=== PATIENT | male | born 1960 | race Caucasian/White ===

== ENCOUNTER 2018-05-20 21:53 | Inpatient (IN) | payer SELFPAY ==
[2018-05-20] MEDS ORDERED: Aspirin 81 mg CHEW TAB* 81 MG TAB.CHEW PO ONE (22:25)
[2018-05-20] MEDS ORDERED: Albuterol/Ipratropium NEB.SOL* Albuterol 2.5 MG/Ipratropium 0.5 MG 3 ML INH ONE (22:25)
--- NOTE | 2018-05-20 22:35 | ED ---
Shortness of Breath - HPI Summary HPI Summary: A 58 y/o male transferred from [place] presents to the ED c/o SOB. He woke up today, 05/20/2018 having difficulty breathing and went to work. He also c/o heart burn, nausea and states that he has vomited 10 times today. He denies any CP, diarrhea, swelling or abd pain. He is a smoker but denies any drug or alcohol use. Pt has a Hx of 2 MIs but denies COPD or emphysema. - History of Current Complaint Chief Complaint: EDShortnessOfBreath Time Seen by Provider: 05/20/18 22:07 Hx Obtained From: Patient Onset/Duration: Sudden Onset, Lasting Hours Current Severity: Moderate - Allergy/Home Medications Allergies/Adverse Reactions: Allergies Allergy/AdvReac Type Severity Reaction Status Date / Time bee venom protein (honey bee) Allergy Unknown Verified 05/20/18 22:11 Reaction Details peach Allergy Unknown Verified 05/20/18 22:11 Reaction Details Home Medications: Home Medications Furosemide TAB* [Lasix TAB*] 20 mg PO DAILY 05/20/18 [History Confirmed 05/20/18 ] amLODIPine TAB* [Norvasc 5 mg TAB*] 10 mg PO DAILY 05/20/18 [History Confirmed 05/20/18] metFORMIN* [Glucophage 500 MG TAB *] 500 mg PO BID 05/20/18 [History Confirmed 05/20/18] PMH/Surg Hx/FS Hx/Imm Hx Cardiovascular History: Reports: Hx Cardiac Arrest Respiratory History: Denies: Hx Chronic Obstructive Pulmonary Disease (COPD) Infectious Disease History: No Infectious Disease History: Denies: Traveled Outside the [place] in Last 30 Days - Family History Known Family History: Negative: Blood Disorder - Social History Alcohol Use: None Substance Use Type: Reports: None Smoking Status (MU): Heavy Every Day Tobacco Smoker Review of Systems Negative: Fever Negative: Chest Pain Positive: Shortness Of Breath Positive: Vomiting, Nausea. Negative: Abdominal Pain, Diarrhea All Other Systems Reviewed And Are Negative: Yes Physical Exam - Summary Physical Exam Summary: Appearance: Well appearing, no pain distress Skin: warm, dry, reflects adequate perfusion Head/face: normal Eyes: EOMI, SHAHEED ENT: normal Neck: supple, non-tender Respiratory: rales b/l Cardiovascular: Tachycardic, regular rhythm, pulses symmetrical Abdomen: non-tender, soft Bowel: present Musculoskeletal: normal, strength/ROM intact Neuro: normal, sensory motor intact, A&Ox3 Triage Information Reviewed: Yes Vital Signs On Initial Exam: Initial Vitals Temp Pulse Resp BP Pulse Ox 98.6 F 110 22 173/117 95 05/20/18 21:58 05/20/18 21:58 05/20/18 21:58 05/20/18 21:58 05/20/18 21:58 Vital Signs Reviewed: Yes Diagnostics - Vital Signs Vital Signs Temp Pulse Resp BP Pulse Ox 05/20/18 21:58 98.6 F 110 22 173/117 95 - Laboratory Lab Statement: Any lab studies that have been ordered have been reviewed, and results considered in the medical decision making process. - CT Chest/Thorax CTA CT Interpretation Completed By: Radiologist - 1. No pulmonary emboli. 2.findings of bronchitis with bibasilar atelectasis and small pleural effusions. This report has been reviewed by the ED physician. - EKG 00:29 Cardiac Rate: NL - 118 bpm EKG Rhythm: Atrial Fibrillation Summary of EKG Findings: rvr Course/Dx - Course Course Of Treatment: A 58 y/o male transferred from [place] presents to the ED c/o SOB. He woke up today, 05/20/2018 having difficulty breathing and went to work. His PE revealed that he was tachycardic. The CTA chest/thorax revealed: 1. No pulmonary emboli. 2. Findings of bronchitis with bibasilar atelectasis and small pleural effusions. Dx: CHF, PNA, hypoxia. The patient will be admitted to Dr. Zhang. The pt is agreeable to this plan. - Diagnoses Differential Diagnosis/HQI/PQRI: Positive: Bronchitis, CHF, COPD Exacerbation, Pneumonia, Pulmonary Embolism Provider Diagnoses: CHF (congestive heart failure), PNA (pneumonia), Hypoxia, COPD exacerbation - Physician Notifications Discussed Care of Patient With: Vy Zhang Time Discussed With Above Provider: 23:40 Instructed by Provider To: Admit As Inpatient - Critical Care Time Critical Care Time: 30-74 min Discharge - Sign-Out/Discharge Documenting (check all that apply): Patient Departure - Admit - Discharge Plan Condition: Fair Disposition: ADMITTED TO [facility] - Billing Disposition and Condition Condition: FAIR Disposition: Admitted to [facility] - Attestation Statements Document Initiated by Scribe: Yes Documenting Scribe: Red Wynne Provider For Whom Scribe is Documenting (Include Credential): Tyler Ray Scribe Attestation: I, Red Wynne, scribed for Tyler Sherwoodjanine on 05/21/18 at 0141. Scribe Documentation Reviewed: Yes Provider Attestation: The documentation as recorded by the travonibeRed accurately reflects the service I personally performed and the decisions made by me, Tyler Ray
[2018-05-20] MEDS ORDERED: Iodixanol* (CONTRAST) 320 MG/ML 100 ML SDV IV ONE (22:54)
[2018-05-20] MEDS ORDERED: Furosemide IV* 10 MG/ML VIAL (40 MG) IV ONE (23:23)
[2018-05-20] MEDS ORDERED: cefTRIAXone(*) 1 GM in NS 0.9% 50 ML* 50 ML IVPB ONE (23:24)
[2018-05-20] MEDS ORDERED: Azithromycin IV(*) 500 MG in NS 0.9% 250 ML* 250 ML IVPB ONE (23:24)
--- NOTE | 2018-05-21 00:25 | RAD ---
EXAM: CT Angiography Chest With Intravenous Contrast EXAM DATE/TIME: 05/20/2018 11:02 PM CLINICAL HISTORY: 58 years old, male; Pain and signs and symptoms; Shortness of breath; Chest pain; Additional info: Sob/hypoxia/pe TECHNIQUE: Axial computed tomographic angiography images of the chest with intravenous contrast using CT angiography protocol. All CT scans at this facility use at least one of these dose optimization techniques: automated exposure control; mA and/or kV adjustment per patient size (includes targeted exams where dose is matched to clinical indication); or iterative reconstruction. Coronal and sagittal reformatted images were created and reviewed. MIP reconstructed images were created and reviewed. CONTRAST: 82 ml of visi administered intravenously. COMPARISON: No relevant prior studies available. FINDINGS: Pulmonary arteries: Pulmonary arteries are well opacified to the subsegmental branches. Normal caliber main pulmonary artery. No filling defects throughout the pulmonary artery tree. Aorta: The aorta demonstrates mild atherosclerotic calcification. Lungs: Patchy subsegmental atelectasis basilar segments bilateral lower lobes. Ground glass pulmonary nodules anterior segment right upper lobe measuring 0.4 and 0.6 cm and upper lingula measuring 0.3 cm (series 3, image 26). Mild diffuse peribronchial thickening. No bronchiectasis. Pleural space: Small pleural effusions. No pneumothorax. Heart: There is mild atherosclerotic calcification of the coronary arteries. Thyroid: No thyroid nodules. Bones/joints: The thoracic spine demonstrates mild degenerative changes at multiple levels. No fractures. No suspicious bone lesions. Soft tissues: Normal. Lymph nodes: Normal. No enlarged lymph nodes. IMPRESSION: 1. No pulmonary emboli. 2. Findings of bronchitis with bibasilar atelectasis and small pleural effusions. To contact [facility] with a general question: [facility] - [phone] For direct physician to physician contact: Physician Hotline - [phone] [facility] ([facility] Facility ID #[id number])
[2018-05-21] MEDS ORDERED: Albuterol 2.5 MG/3 ML NEB.SOL* (0.083%) INH PRN (00:35)
[2018-05-21] MEDS ORDERED: hydrALAZINE IV* 20 MG/ML VIAL IV SLOW PU PRN (00:38)
[2018-05-21] MEDS ORDERED: Metoprolol Tartrate TAB* 25 MG PO ONE (00:43)
[2018-05-21] MEDS ORDERED: Enoxaparin(*) 100 MG/ML SYR SUBCUT SCH (01:00)
[2018-05-21] MEDS ORDERED: Dextrose 50% Syringe 50 ML* 25 GM/50 ML SYRINGE IV PUSH PRN ×3 (01:03→12:18)
--- NOTE | 2018-05-21 03:36 | HP ---
HISTORY AND PHYSICAL: DATE OF ADMISSION: 05/21/18 PRIMARY CARE PROVIDER: None. 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 CHIEF COMPLAINT: Shortness of breath. HISTORY OF PRESENT ILLNESS: Mr. Jacobson is a 58-year-old male who approximately 12 days ago was seen at [facility] where he reportedly, per his family, was diagnosed with CHF. He was discharged from [facility] with 4 prescriptions including Tessalon Perles, amlodipine, Lasix, and metformin for a diagnosis of diabetes. The patient states he has been taking the medications since his evaluation at [facility]. In general, he had been feeling better in terms of his breathing until the evening of 05/19/18. The patient states that he had dinner like normal and was generally feeling in his usual state of health. He went to bed and in bed, he noted that he had to lie with his head raised, at least 30 degrees, to help his breathing. He states generally he slept very poorly due to shortness of breath and having to get up several times in the middle of the night to urinate, which is a common occurrence for him. The patient went to work on 05/20/18 and later went home for lunch. After lunch, he then went to visit his son. When he got home from visiting his son, he vomited. He laid on the couch for about 20 minutes and then told his girlfriend that he needed to go to the emergency room as he was severely short of breath. The patient's girlfriend had to tack puller twice on the way to the emergency room so he could vomit. Since arriving to the emergency room at [facility], the patient noted he has had improvement in terms of his respiratory status. He still, however, feels quite short of breath. He does complain of cough, which is relatively new and thick sputum production. He states that his sputum production is unchanged from his baseline; however, according to the note from [facility], he stated that it was more than normal. He denies any recent long distance travel and he denies any recent sick contacts. He states he has had no fevers, but he states that he had chills a couple of nights ago. PAST MEDICAL HISTORY: 1. Type 2 diabetes. 2. Hypertension. 3. CVA in December 2017. 4. CAD, status post stenting. 5. Hyperlipidemia. PAST SURGICAL HISTORY: Left arm surgery related to a fracture. MEDICATIONS: 1. Amlodipine 10 mg p.o. daily. 2. Metformin 500 mg p.o. b.i.d. 3. Lasix 20 mg p.o. daily. ALLERGIES: No known drug allergies, but he is allergic to BEE VENOM and PEACH. FAMILY HISTORY: Mom of lung cancer. Dad at the age of 57 of [place]. SOCIAL HISTORY: The patient smokes 1 pack per day and has been doing so since the age of 11. He does not drink alcohol. 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 He has a girlfriend. He has 3 children. He indicates that his girlfriend and his [id number] would be his healthcare proxies. REVIEW OF SYSTEMS: A complete 11-system review of systems is obtained. Pertinent positives and negatives are as per HPI and in addition, the patient does admit to nocturia getting up 4 to 5 times per night and chronic right- sided weakness that has been since a stroke in December. PHYSICAL EXAMINATION GENERAL: The patient is a well-developed, middle-aged male seen lying in the stretcher, in no acute distress. VITAL SIGNS: Blood pressure 151/84, pulse 127, respirations 22, temp 98.6, O2 sat 93% on 4 L. HEENT: Pupils are equal and round. Extraocular muscles are intact. Oropharynx is clear. Oral mucosa is moist. Thyroid is not enlarged. No thyroid nodules are noted. NECK: There is submandibular, cervical, or supraclavicular adenopathy. PULMONARY: Breath sounds are markedly decreased at the bases, but are decreased throughout all lung keyes. Breath sounds are somewhat coarse. CARDIAC: Heart rate sounds to be irregular on exam and is tachycardic on EKG. The patient is irregularly irregular. There is 1 to 2+ bilateral lower extremity pitting edema. ABDOMEN: Bowel sounds are present. Abdomen is soft, nontender, nondistended. MUSCULOSKELETAL: There is no cyanosis or clubbing of the digits. There is full active range of motion of all 4 extremities. NEUROLOGIC: Cranial nerves II through XII are grossly intact. Sensation appears to be intact. Strength is generally symmetric and normal. PSYCH: The patient is alert. He is oriented x3. He provides poor eye contact and speaks softly, but denies depression. SKIN: Warm and dry. There are no rashes. The patient does have a very large tattoo on his back. DIAGNOSTIC STUDIES/LAB DATA: WBC 16.6, hemoglobin 14.2, hematocrit 42.4, platelets 415. Sodium 140, potassium 3.3, chloride 99, CO2 of 29, BUN 21, creatinine 1.2, glucose 275, calcium 8.8. Magnesium 2.2. Albumin 3.5, AST 18, ALT 42, bilirubin 0.6, alk phos 187. INR 0.95. Lactic acid 2.5. BNP 81. D- dimer 1380. Troponin 0.029. EKG initially concerned for atrial fibrillation; however, the patient appears to have irregularly irregular rate on EKG, question sinus versus ectopic atrial tachycardia. There are no acute ST-T wave abnormalities. CTA chest reveals no pulmonary emboli. Findings consistent with bronchitis with bibasilar atelectasis and small pleural effusion. ASSESSMENT AND PLAN: Mr. Jacobson is a 58-year-old male who has a longstanding ongoing history of tobacco abuse, type 2 diabetes, hypertension, coronary artery disease, and past CVA, who presented initially to [facility] with complaints of shortness of breath and subsequently transferred [place] [facility] due to an elevated troponin. 1. Dyspnea. The differential in the patient's dyspnea is quite broad. He has essentially been ruled out for pulmonary embolism at this point. He may have bronchitis versus pneumonia. The patient at times alludes to the fact that perhaps the cough and sputum is a relatively new issue for him. The patient has an elevated white blood cell count of 16,600. He stated that he had chills and with the abnormal CTA lung parenchyma findings, I will go ahead and start Levaquin daily starting tomorrow. The patient did receive ceftriaxone and azithromycin in the emergency room at [facility]. Also on the differential would be congestive heart failure; however, the patient's BNP is normal at 81. He does have bilateral lower extremity pitting edema. He has not had an echo in several months and not in our system. The patient will undergo a transthoracic echocardiogram to evaluate his ejection fraction. Also on the differential is chronic obstructive pulmonary disease exacerbation. The patient has an extensive smoking history. We will treat him with nebulizers, Solu-Medrol, and antibiotics. The patient was noted to be hypoxic in the emergency room at [facility]. The patient had relatively coarse breath sounds but mostly clear and diminished. I suspect his hypoxia may have been related to his probable chronic obstructive pulmonary disease. The patient did temporarily take off the oxygen and had a saturation of 91% on room air. This will need to be monitored closely. 2. Elevated troponin. The patient's troponin at [facility] was slightly elevated at 0.029 with a normal cut off being 0.02. The patient denies any chest pain. His EKG does not have any concerning ST-T wave abnormalities. My suspicion is that the patient's elevated troponin is secondary to demand ischemia. The patient will have a followup troponin now and again at 6 a.m. Again, a transthoracic echocardiogram will be obtained. We will initiate the patient on aspirin and statin, especially given his history of coronary artery disease in the past. The patient likely needs a stress test in the near future and likely as an outpatient to evaluate his coronary artery disease. 3. Irregular heart rhythm. The patient at times appears to be in atrial fibrillation; however, his latest EKG obtained at [facility] does appear to be irregularly irregular. Given his tachycardia, I will initiate metoprolol tartrate 25 mg p.o. q.12 hours. As atrial fibrillation is not completely clear , I am not going to fully anticoagulate the patient at this point. 4. Type 2 diabetes. His hemoglobin A1c is pending. Lispro sliding scale and fingerstick blood glucoses will be performed a.c., h.s. His metformin will be on hold for now. 5. Hypertension. The patient has marked hypertension at this time. I will continue amlodipine 10 mg daily and add metoprolol as above. Additionally, he will have p.r.n. hydralazine for systolic blood pressures greater than 170. 6. Congestive heart failure. The patient was diagnosed with congestive heart failure approximately 12 days ago. The patient's family did not believe that he had any lab work at the time of that diagnosis. He was started on Lasix. I will continue the Lasix for now given his lower extremity edema. Again, I do not believe currently he is in heart failure exacerbation leading to his dyspnea. A transthoracic echocardiogram will be obtained as above. 7. DVT prophylaxis: According to the Adult Thrombosis Prophylaxis Risk Factor Assessment Guide, the patient has a total risk factor score of 5, making him a highest risk. Lovenox 40 mg subcutaneous daily will be utilized as DVT prophylaxis. 8. Code status is full. TIME SPENT: 65 minutes were spent admitting this patient. [id number]/CPS #: [id number] HILARY
[2018-05-21 05:42] LABS: ABS Basophils 0.1 10^3/ul (0-0.2); ABS Eosinophils 0 10^3/ul (0-0.6); ABS Lymphocytes 0.5 10^3/ul (1.0-4.8); ABS Monocytes 0.2 10^3/ul (0-0.8); ABS Neutrophils 11.6 10^3/ul (1.5-7.7); ABS Nucleated RBC 0 10^3/ul; Eosinophil % 0 % (0-6); Hematocrit 40 % (42-52); Hemoglobin 13.2 g/dl (14.0-18.0); Lymphocyte % 3.9 % (25-47); Mean Corpuscular HGB Conc 33 g/dl (31-36); Mean Corpuscular Hemoglobin 30 pg (27-31); Mean Corpuscular Volume 89 fL (80-94); Mean Platelet Volume 7.2 um3 (7.4-10.4); Nucleated Red Blood Cells % 0; Platelet Count 326 10^3/ul (150-450); Red Blood Count 4.47 10^6/ul (4.00-5.40); Red Cell Distribution Width 15 % (10.5-15); White Blood Count 12.3 10^3/ul (3.5-10.8)
[2018-05-21 06:08] LABS: EGFR Non-African American 59.1 (>60)
[2018-05-21] MEDS ORDERED: Enoxaparin(*) 40 MG/0.4 ML SYR SUBCUT SCH (07:30)
[2018-05-21] MEDS ORDERED: Insulin LISPRO* 1 UNITS UNIT SUBCUT SCH (07:30)
[2018-05-21] MEDS ORDERED: amLODIPine TAB* 5 MG PO SCH (09:00)
[2018-05-21] MEDS ORDERED: Metoprolol Tartrate TAB* 25 MG PO SCH (09:00)
[2018-05-21] MEDS: Furosemide TAB* 20 MG PO SCH (09:08)
[2018-05-21] MEDS: Aspirin EC TAB* 81 MG TAB.EC PO SCH (09:09)
[2018-05-21] MEDS: methylPREDNISolone SOD 40 MG* 1 ML VIAL IV SCH ×2 (09:17→21:36)
[2018-05-21] MEDS ORDERED: Insulin LISPRO* 1 UNITS UNIT SUBCUT ONE ×3 (10:13→12:18)
--- NOTE | 2018-05-21 10:24 | PN ---
Subjective Date of Service: 05/21/18 Interval History: . Patient reports he is feeling better today with less SOB. He denies any further nausea. He denies ever having CP. He stopped taking his Aspirin "some time ago" - had a cardiac cath at [facility] in [place] over 5 years ago where he had a stent placed - he is not sure what type of stent. Doesn't follow with a investigative shopper regularly and doesnt have a primary. In december he had a stroke and was treated at [facility]. States he was discharged home on a ASA or other medications due to that he left AMA. Reports cough with some sputum production. No fevers or chills. Recent dx 2 weeks ago with CHF and started on lasix - reports his symptoms initially improved. Objective Active Medications: Albuterol (Ventolin 2.5 Mg/3 Ml Neb.Patsy*) 2.5 mg INH Q4H PRN PRN Reason: SOB/WHEEZING Amlodipine Besylate (Norvasc Tab*) 10 mg PO DAILY [facility] Last Admin: 05/21/18 09:08 Dose: 10 mg Aspirin (Aspirin Ec Tab*) 81 mg PO DAILY [facility] Last Admin: 05/21/18 09:09 Dose: 81 mg Atorvastatin Calcium (Lipitor*) 40 mg PO 2100 [facility] Dextrose (D50w Syringe 50 Ml*) 12.5 gm IV PUSH .FOR FS < 60 - SS PRN PRN Reason: FS < 60 Enoxaparin Sodium (Lovenox(*)) 40 mg SUBCUT Q24H [facility] Last Admin: 05/21/18 09:17 Dose: 40 mg Furosemide (Lasix Tab*) 20 mg PO DAILY [facility] Last Admin: 05/21/18 09:08 Dose: 20 mg Hydralazine HCl (Apresoline Iv*) 10 mg IV SLOW PU Q6H PRN PRN Reason: SBP>170 Levofloxacin/Dextrose (Levaquin 500 Mg Ivpremix(*)) 500 mg in 100 mls @ 100 mls /hr IVPB Q24H [facility] Insulin Glargine (Lantus(*)) 10 units SUBCUT ONCE ONE Stop: 05/21/18 10:31 Insulin Glargine (Lantus(*)) 15 units SUBCUT Q24H [facility] Insulin Human Lispro (Humalog*) 7 units SUBCUT AC [facility] Insulin Human Lispro (Humalog*) 0 units SUBCUT ACHS [facility]; Protocol Methylprednisolone Sodium Succinate (Solu-Medrol 40 Mg) 40 mg IV Q12H [facility] Last Admin: 05/21/18 09:17 Dose: 40 mg Metoprolol Tartrate (Lopressor Tab*) 25 mg PO Q12HR [facility] Last Admin: 05/21/18 09:09 Dose: 25 mg Vital Signs - 8 hr 05/21/18 05/21/18 05/21/18 03:44 07:34 09:57 Temperature 98.8 F 98.3 F Pulse Rate 68 68 Respiratory 20 20 20 Rate Blood Pressure 163/83 163/81 (mmHg) O2 Sat by Pulse 99 94 Oximetry Oxygen Devices in Use Now: None Appearance: 58 yo male sitting up in bed in NAD A+O x3 Eyes: No Scleral Icterus, PERRLA Ears/Nose/Mouth/Throat: Clear Oropharnyx, Mucous Membranes Moist Respiratory: Symmetrical Chest Expansion and Respiratory Effort, - - diminished with crackles to bases b/l Cardiovascular: NL Sounds; No Murmurs; No JVD, RRR, No Edema Abdominal: NL Sounds; No Tenderness; No Distention Skin: No Rash or Ulcers, No Nodules or Sclerosis Neurological: Alert and Oriented x 3, NL Sensation, NL Muscle Strength and Tone Lines/Tubes/Other Access: Clean, Dry and Intact Peripheral IV Nutrition: Taking PO's Result Diagrams: 05/21/18 05:34 05/21/18 05:34 Assess/Plan/Problems-Billing Assessment: 58 yo male with a PMH of alf tobacco abuse, CAD with stent placement ([facility]), non-insulin T2DM, HTN, hx of CVA in December ([facility]), hx of non-compliance who presented from [facility] on 05/20 with dyspnea cough and thick sputum, with a report of vomiting x3 on the way to the ER who was [place] [facility] [place] abnormal trop[place]. - Patient Problems (1) SOB (shortness of breath) Comment: - Improving - CTA showing bronchitis - no PE - - most likely COPD exacerbation continue - continue levaquin, Solumedrol, Nebs prn - concerned about the patients story of vomiting and sob prior to hospital now with trop 0.5 and EKG changes. - Cardiology consult pending. - Echo pending (2) Elevated troponin Comment: - Trop peaked at 0.5 - Concerning EKG changes with inverted Twaves and ST changes - - cardiology consult pending - Continue ASA, statin, BB - obtain records from [facility] (3) Diabetes Comment: - uncontrolled on admission but did have solumedrol in [facility] - HbA1C pending. - Start Lantus 15 units Q24 (most likely this will need to be increased) - Start Lispro AC 7 units with sliding scale. - FSBG ACHS - Hold home metformin (4) Tachycardia Comment: - tachycardia on admission with a question of afib. Started on a BB on admission - now HR 60's. Continue to monitor on telemetry. [facility] records pending - pt with hx of CVA in December. (5) Abnormal renal function Comment: - do not know patients baseline. - Waiting for records - Repeat in am (6) Tobacco abuse Comment: - nicotine supplementation - smoking cessation (7) History of CVA (cerebrovascular accident) Comment: - pt and family report "possible CVA" in December - pt left [facility] AMA - not on ASA/ Statin at home (8) DVT prophylaxis Comment: - Lovenox Status and Disposition: OBV.
[2018-05-21] MEDS ORDERED: Insulin GLARGINE(*) 1 UNITS UNIT SUBCUT ONE (10:30)
[2018-05-21] MEDS ORDERED: Mouth Piece, Nicotine* 1 EACH CARTRIDGE INH PRN ×2 (11:10)
[2018-05-21] MEDS: Nicotine Inhaler* 10 MG AMP INH PRN ×2 (11:32→16:23)
[2018-05-21] MEDS: Insulin LISPRO* 1 UNITS UNIT SUBCUT SCH ×5 (12:32→21:37)
--- NOTE | 2018-05-21 13:33 | ECHO ---
Patient: SHANTEL THOMPSON [facility] Rec#: [id number] : 1960 Date: 05/21/2018 Age: 58y Height: 175 cm / 68.9 in Weight: 99.8 kg / 220.0 lbs Sex: M BSA: 2.2 Room#: 434 Admit Date#: 05/21/2018 Type: Inpatient Referring: Vy Zhang DO Reading: Merary Barrientos MD Screen Printing Loader Unloader: Marleen Lopez RN RDCS CC: MIKE Ardon Transthoracic Echocardiogram Indication: Cardiomyopathy, SOB BP: 163/83 HR: 68 Rhythm: NSR Findings History: CAD, PCI, HTN, HLD, DM, CVA , smoker. Technical Comments: The study quality is fair. The study is technically limited due to the patient's smoking history. Completed at 0915. Left Ventricle: The left ventricular chamber size is normal. Moderate concentric left ventricular hypertrophy is observed. Global left ventricular wall motion and contractility are within normal limits. There is normal left ventricular systolic function. The estimated ejection fraction is 60-65%. Abnormal left ventricular diastolic function is observed. Left Atrium: The left atrium is moderately dilated. Right Ventricle: The right ventricle wall thickness is mildly increased. The right ventricular cavity size is normal. The right ventricular global systolic function is normal. Right Atrium: The right atrium is moderately dilated. Aortic Valve: The aortic valve is trileaflet. The aortic valve leaflets are moderately thickened. Systolic excursion of the aortic valve cusps is reduced. Systolic excursion of the left coronary cusp is reduced. There is mild aortic regurgitation. There is mild aortic stenosis. The mean gradient of the aortic valve is 8 mmHg. The peak instantaneous gradient of the aortic valve is 15 mmHg. The aortic valve area, by peak velocities, is calculated at 1.7 cm2. The aortic valve area, by VTI's, is calculated at 1.7 cm2. The dimensionless index is 0.54-0.55. The measured aortic regurgitation pressure half-time is 548 msec. Mitral Valve: The mitral valve leaflets are mildly thickened. There is mild mitral regurgitation. There is no evidence of mitral stenosis. Tricuspid Valve: The tricuspid valve leaflets are normal. There is trace to mild tricuspid regurgitation. There is evidence of mild pulmonary hypertension. There is no tricuspid stenosis. Pulmonic Valve: The pulmonic valve structure is not well visualized. There is trace to mild pulmonic regurgitation. There is no pulmonic stenosis. Pericardium: There is no significant pericardial effusion. Aorta: There is no dilatation of the ascending aorta. The aortic arch is not well visualized. There is no dilation of the aortic root. Pulmonary Artery: The main pulmonary artery is not well visualized. Venous: The inferior vena cava is dilated. There is less than 50% respiratory change in the inferior vena cava dimension. Summary: There was not any prior study for comparison. Conclusions The left ventricular chamber size is normal. Moderate concentric left ventricular hypertrophy is observed. The estimated ejection fraction is 60-65%. Abnormal left ventricular diastolic function is observed. The left atrium is moderately dilated. The right atrium is moderately dilated. There is mild aortic regurgitation. There is mild aortic stenosis. There is mild mitral regurgitation. There is trace to mild tricuspid regurgitation. There is evidence of mild pulmonary hypertension. There is trace to mild pulmonic regurgitation. Measurements Name Value Normal Range RVIDd (AP) 2D 3 cm (0.9 - 2.6) RVDdMajor (2D) 3 cm (2.2 - 4.4) RVAW (2D) 0.8 cm (0.2 - 0.5) RAd ISD 4CH 6.1 cm (3.4 - 4.9) RA (A4C)W 3.6 cm (2.9 - 4.6) IVSd (2D) 1.5 cm (0.6 - 1) LVPWd (2D) 1.5 cm (0.6 - 1) LVIDd (2D) 4.7 cm (3.6 - 5.4) LVIDs (2D) 2.9 cm - LV FS (2D) 38 % (25 - 45) Aortic Annulus 2.1 cm (1.4 - 2.6) Ao root diameter (2D) 3.1 cm (2.1 - 3.5) Ascending Ao 3.3 cm (2.1 - 3.4) LA dimension (AP) 2D 4.3 cm (2.3 - 3.8) LAd ISD 4CH 6.5 cm (2.9 - 5.3) LA ISD 4CH W 4.2 cm (2.5 - 4.5) Name Value Normal Range LA ESV BP (A/L) index 32 ml/m2 - Name Value Normal Range MV E-wave Vmax 1.6 m/sec - MV deceleration time 194 msec - MV A-wave Vmax 0.55 m/sec - MV E:A ratio 2.8 ratio - LV septal e' Vmax 0.08 m/sec - LV lateral e' Vmax 0.07 m/sec - LV E:e' septal ratio 20 ratio - LV E:e' lateral ratio 22.9 ratio - Name Value Normal Range AV Vmax 2 m/sec - AV VTI 41.6 cm - AV peak gradient 15 mmHg - AV mean gradient 8 mmHg - LVOT diameter 2 cm - LVOT Vmax 1.1 m/sec - LVOT VTI 22.3 cm - LVOT peak gradient 5 mmHg - LVOT mean gradient 3 mmHg - DOI (VTI) 0.54 ratio - DOI (Vmax) 0.55 ratio - DARLYN (continuity Vmax) 1.7 cm2 - DARLYN (continuity VTI) 1.7 cm2 - AR PHT 548 msec - Name Value Normal Range MV Vmax 1.7 m/sec - MV VTI 45.6 cm - MV peak gradient 11 mmHg - MV mean gradient 3 mmHg - MV PHT 69 msec - MVA (PHT) 3.2 cm2 - Name Value Normal Range TR Vmax 2.4 m/sec - TR peak gradient 23 mmHg - RAP 15 mmHg - RVSP 38 mmHg - IVC diameter 2.4 cm - Name Value Normal Range PV Vmax 1 m/sec -
[2018-05-21] MEDS: Metoprolol Tartrate TAB* 25 MG PO SCH ×2 (17:46→21:38)
[2018-05-21] MEDS: Captopril TAB* 12.5 MG PO SCH ×2 (17:46→21:38)
[2018-05-21] MEDS: Enoxaparin(*) 100 MG/ML SYR SUBCUT SCH (17:48)
[2018-05-21] MEDS: Nicotine PATCH 21 MG/24 HR* PATCH TRANSDERM SCH (19:38)
[2018-05-21] MEDS: Levofloxacin 500 MG IVPREMIX(* 500 MG/100 ML BAG IVPB SCH (19:39)
[2018-05-21] MEDS ORDERED: Atorvastatin* 40 MG TAB PO SCH (21:00)
--- NOTE | 2018-05-21 21:25 | CONS ---
INTERVENTIONAL CARDIOLOGY CONSULT NOTE: DATE OF CONSULT: 05/21/18 PRIMARY CARE PROVIDER: None. HISTORY OF PRESENT ILLNESS: A 58-year-old man with diabetes, hypertension, hyperlipidemia, and previous coronary artery disease with stenting as well as documented medication noncompliance, transferred from [facility] with dyspnea, low level troponin elevation. He is a fair historian, we have copies from [place] where in March,, he had a stent placed in the RCA 90% stenosis. The report lists a 5.4 x 12 mm stent, which does not exist. At that time, LAD had 60% stenosis with a nonischemic FFR of 0.85, it was not treated. He quite clearly recalls having chest pain back in 2010 and has never had a recurrence since. About 2 weeks ago , he was at [facility] ER with shortness of breath that came on fairly suddenly over a few hours, he was told he had fluid in his chest, was discharged with metformin, Norvasc, and Lasix, which he says he has been taking. He had some improvement, but had persisting more than normal exertional dyspnea, some orthopnea. Yesterday, he went to the ER again because he was unable to sleep the night before without sitting upright. Throughout all of this, he denies having had any chest pain or palpitations or syncope. Evaluation at [facility] included a blood pressure of 203/113, an elevated alkaline phosphatase of 187, normal BNP at 81, a troponin of 0.029, creatinine of 1.2 and random blood sugar of 275. CBC was unremarkable. I do not have the report of a chest x-ray. EKG from [facility] at 1937 hours yesterday documents left axis deviation with probable left anterior hemiblock, diffuse nonspecific ST changes, ventricular rate of 139 with a regular tachycardia, baseline is noisy, there are no evident flutter waves. A repeat EKG at 2040 hours shows different lead placement, and is suggestive of atrial flutter with regular very small amplitude flutter waves on the tracing. He was transferred here. He now feels improved, he has again had no chest pain. He denies expiratory wheezing, he does smoke a pack per day , does admit to chronic cough. His dyspnea, however, is fairly acute in onset and when present is without any audible wheezing as far as he is concerned. PAST MEDICAL HISTORY: Diabetes type 2, just started on metformin. A family member is apparently working on getting him connected with primary care. Hypertension, hyperlipidemia, history of previous AL with stenting in 2010. 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 FAMILY HISTORY: Positive for premature coronary artery disease. ALLERGIES: To BEES and PEACHES. REVIEW OF SYSTEMS: He has lost some 20 pounds in the last several months without dieting. 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 Says he has had some problems with memory recall since then. GI: No history of peptic ulcer disease or bleeding. Circulatory: He denies claudication, peripheral edema. The remainder all negative. PHYSICAL EXAMINATION: Currently, he is not tachypneic or dyspneic, he is comfortable. He is not coughing or wheezing. Blood pressure here 150/78, heart rate is in the 70s, with still probably very small amplitude flutter waves on telemetry. His lungs, I here no rales are wheezes, but breath sounds are very distant. JVP is not visible. Carotids are palpable without bruits. HEENT: Unremarkable without xanthelasma, scleral injection or jaundice. EOM is normal. Cranial nerves intact. Cardiac Exam: His heart rhythm is somewhat irregular, but not irregularly irregular, he has a probable S4 gallop, no S3. No audible murmur. Abdomen is soft, nontender. No bruits, I cannot feel liver edge or the aorta. Femoral pulses are palpable, but diminished without bruits. Radial pulses are palpable, pedals are very faint. He has no cyanosis, clubbing , or edema. Skin is warm and perfused. DIAGNOSTIC STUDIES/LAB STUDIES: Here subsequent to admission has some development of anterolateral T-wave inversion, an elevated white count with a left shift, troponin that peaked to 0.52 with a rise and fall, hemoglobin A1c high at 9.1, creatinine today is 1.25 with a GFR of 59. Echocardiogram reported a normal wall motion and normal EF. IMPRESSION: Atrial flutter. He has very low amplitude flutter waves. His history suggest decompensation with shortness of breath with the onset of atrial flutter, which may have been paroxysmal. Given his moderate LAD stenosis with previous nonischemic FFR, it certainly could account for his small troponin rise with a type 2 infarct from increased demand. The absence of angina and the normal wall motion suggest LAD plaque rupture with a high grade stenosis as less likely. In addition, he was hypertensive, and has a number of untreated medical issues, apparently in large part because of noncompliance. In my view, he is a very poor candidate for intervention because of concern of noncompliance. My recommendation is to restore sinus rhythm and obtain an exercise stress test, if he is not able to exercise then with Lexiscan to rule out a large ischemic burden. He will be started on anticoagulation, we will follow as needed. Thanks for the consult. [id number]/[facility] #: [id number] HILARY
[2018-05-21] MEDS: Atorvastatin* 40 MG TAB PO SCH (21:38)
[2018-05-21] MEDS ORDERED: Calcium Carbonate CHEW TAB* 500 MG (TUMS) PO PRN (21:53)
[2018-05-22] MEDS: Enoxaparin(*) 100 MG/ML SYR SUBCUT SCH (05:24)
[2018-05-22 06:09] LABS: ABS Basophils 0.2 10^3/ul (0-0.2); ABS Eosinophils 0 10^3/ul (0-0.6); ABS Lymphocytes 0.9 10^3/ul (1.0-4.8); ABS Monocytes 0.6 10^3/ul (0-0.8); ABS Neutrophils 16.2 10^3/ul (1.5-7.7); ABS Nucleated RBC 0 10^3/ul; Eosinophil % 0 % (0-6); Hematocrit 37 % (42-52); Hemoglobin 12.1 g/dl (14.0-18.0); Lymphocyte % 4.8 % (25-47); Mean Corpuscular HGB Conc 33 g/dl (31-36); Mean Corpuscular Hemoglobin 29 pg (27-31); Mean Corpuscular Volume 89 fL (80-94); Mean Platelet Volume 7.8 um3 (7.4-10.4); Nucleated Red Blood Cells % 0; Platelet Count 318 10^3/ul (150-450); Red Cell Distribution Width 14 % (10.5-15); White Blood Count 17.9 10^3/ul (3.5-10.8)
[2018-05-22 06:36] LABS: EGFR Non-African American 67.1 (>60)
[2018-05-22] MEDS: Metoprolol Tartrate TAB* 25 MG PO SCH ×5 (08:18→21:36)
[2018-05-22] MEDS: Nicotine PATCH 21 MG/24 HR* PATCH TRANSDERM SCH (08:18)
[2018-05-22] MEDS: Aspirin EC TAB* 81 MG TAB.EC PO SCH ×2 (08:18→08:37)
[2018-05-22] MEDS: Captopril TAB* 12.5 MG PO SCH ×4 (08:18→21:36)
[2018-05-22] MEDS: Furosemide TAB* 20 MG PO SCH ×2 (08:18→08:37)
[2018-05-22] MEDS: methylPREDNISolone SOD 40 MG* 1 ML VIAL IV SCH ×2 (08:18→21:36)
[2018-05-22] MEDS: Insulin LISPRO* 1 UNITS UNIT SUBCUT SCH ×7 (08:27→21:35)
[2018-05-22] MEDS: Insulin GLARGINE(*) 1 UNITS UNIT SUBCUT SCH (08:35)
[2018-05-22] MEDS ORDERED: Midazolam* 1 MG/ML 10 ML VIAL (10 MG) ONE ×2 (09:53→09:55)
[2018-05-22] MEDS ORDERED: fentaNYL* 50 MCG/ML 2 ML VIAL (100 MCG VIAL) ONE ×2 (09:54→09:55)
[2018-05-22] MEDS ORDERED: Lidocaine 2% VISCOUS* 15 ML UDC ONE (09:54)
[2018-05-22] MEDS ORDERED: Naloxone* 0.4 MG/ML 1 ML VIAL ONE (09:54)
[2018-05-22] MEDS ORDERED: Flumazenil* 0.1 MG/ML 5 ML MDV ONE (09:54)
[2018-05-22] MEDS ORDERED: Metoprolol Tartrate IV* 1 MG/ML 5 ML VIAL ONE (11:02)
[2018-05-22] MEDS ORDERED: Aminophylline IV* 25 MG/ML 10 ML VIAL ONE (13:08)
[2018-05-22] MEDS ORDERED: Regadenoson* 0.4 MG/5 ML SYRINGE ONE (13:08)
--- NOTE | 2018-05-22 13:36 | TEE ---
Patient: SHANTEL THOMPSNO [facility] Rec#: [id number] : 1960 Date: 05/22/2018 Age: 58y Height: 175.3 cm / 69.0 in Weight: 100 kg / 220.4 lbs Sex: M BSA: 2.15 Admit Date#: 05/21/2018 Type: Inpatient Referring: Grace Gregory Performing: Manas Lyles MD Reading: Manas Lyles MD Service Delivery Management Consultant: Marleen Lopez RN RDCS Nurse: Neisha Aleman CC: MIKE Ardon Transesophageal Echocardiogram Indication: Atrial flutter BP: 172/96 HR: 84 Rhythm: A-Flutter Findings History: CAD, PCI, HTN, HLD, DM, CVA, smoker, sleep apnea. Technical Comments: The study quality is good. Left Ventricle: The left ventricular chamber size is normal. Global left ventricular wall motion and contractility are within normal limits. There is normal left ventricular systolic function. The estimated ejection fraction is 55-60%. Left Atrium: The left atrium is moderately dilated. No thrombus is visualized within the left atrium. There is no thrombus visualized in the left atrial appendage. Right Ventricle: The right ventricular cavity size is normal. The right ventricular global systolic function is normal. Right Atrium: The right atrium is moderately dilated. The bubble study is negative. A patent foramen ovale is not demonstrated with color Doppler and agitated contrast. There is evidence of an atrial septal aneurysm. Aortic Valve: The aortic valve is trileaflet. The aortic valve leaflets are mildly thickened. Systolic excursion of the aortic valve cusps is reduced. There is mild aortic regurgitation. There is mild aortic stenosis. Mitral Valve: The mitral valve leaflets are mildly thickened. There is mild to moderate mitral regurgitation. Dual jets. There is no evidence of mitral stenosis. Tricuspid Valve: The tricuspid valve leaflets are normal. There is trace tricuspid regurgitation. Unable to estimate the right ventricular systolic pressure. There is no tricuspid stenosis. Pulmonic Valve: The pulmonic valve appears normal. There is a trace pulmonic regurgitation. Pericardium: There is no significant pericardial effusion. Aorta: There is no dilatation of the ascending aorta. There is no dilation of the aortic root. There is mild to moderate plaque in the ascending arch measuring up to 0.4cm and more moderate plaque in the descending aorta measuring up to 0.6cm. There is evidence of grade 3 (atheroma Less Than = 5mm) atheroma in the ascending aorta. There is plaque visualized in the transverse aorta. There is evidence of grade 3 (atheroma Less Than = 5mm) atheroma in the transverse aorta. There is plaque visualized in the descending aorta. There is evidence of grade 4 (atheroma Greater Than 5mm) atheroma in the descending aorta. Pulmonary Artery: The main pulmonary artery appears normal. Venous: The bicaval view was obtained and appears normal. The pulmonary veins appear normal. 3 of 4 pulmonary veins are visualized. MOO Procedures: All standard views were attempted within the limitations of patient tolerance and safety. History and physical as well as labs were reviewed. The patient was in a fasting state. Risks and benefits of the procedure, including alternatives, were discussed and written informed consent was obtained. The patient and/or their health care branch customer service representative expressed understanding of the procedure, risks and benefits. Baseline and continuous monitoring of blood pressure, heart rate, pulse oximetry and heart rhythm was performed throughout the procedure. The appropriate time-out procedure was performed as per [facility] protocol. The patient was placed in the left lateral decubitus position. The patient's posterior pharynx was anesthetized with 20ml of 2% viscous lidocaine. The patient received IV Midazolam with a total dose of 10 mg. The patient received IV Fentanyl with a total dose of 50 mcg. The multiplane transesophageal echocardiogram probe was inserted through the posterior oropharynx and advanced into the esophagus without difficulty. Multiple 2D images were obtained of the heart and its related structures. Color flow Doppler was used for evaluation. Spectral Doppler was also used. The atrial septum was interrogated with color flow Doppler. At the conclusion of the procedure the probe was removed with continuous suction without complications. The patient tolerated the procedure with no apparent complications. Contrast: Normal saline was used as contrast for the bubble study. Images 58 and 61. Conclusions Atrial flutter/fib during the exam. Global left ventricular wall motion and contractility are within normal limits. The estimated ejection fraction is 55-60%. The left atrium is moderately dilated. There is no thrombus visualized in the left atrial appendage. The right atrium is moderately dilated. A patent foramen ovale is not demonstrated with color Doppler and agitated contrast. There is mild aortic regurgitation. There is mild aortic stenosis. There is mild to moderate mitral regurgitation. Dual jets. There is mild to moderate plaque in the ascending arch measuring up to 0.4cm and more moderate plaque in the descending aorta measuring up to 0.6 cm. Similar to the prior transthoracic study of 10.31.18 Measurements Name Value Normal Range Aortic Annulus 2.2 cm (1.4 - 2.6) Ao root diameter (2D) 3.4 cm (2.1 - 3.5) Ascending Ao 2.9 cm (2.1 - 3.4)
--- NOTE | 2018-05-22 17:53 | PN ---
Subjective Date of Service: 05/22/18 Interval History: Patient seen and examined. He is very unhappy with staying in the hospital and wishes to go home. Explained that nuclear portion of cardiac testing will be done tomorrow and depending on cardiology's recommendations will determine disposition. Patient denies SOB, no chest pain, no palpitations. States he feels "fine" and wants to leave. Explained that it would be safest for him to stay in the hospital to complete diagnostics. Patient reluctant but agreeable. Objective Active Medications: Albuterol (Ventolin 2.5 Mg/3 Ml Neb.Patsy*) 2.5 mg INH Q4H PRN PRN Reason: SOB/WHEEZING Aspirin (Aspirin Ec Tab*) 81 mg PO DAILY [facility] Last Admin: 05/22/18 08:37 Dose: Not Given Atorvastatin Calcium (Lipitor*) 80 mg PO 2100 [facility] Last Admin: 05/21/18 21:38 Dose: 80 mg Calcium Carbonate (Tums*) 500 mg PO Q4H PRN PRN Reason: INDIGESTION Last Admin: 05/21/18 22:32 Dose: 500 mg Captopril (Capoten Tab*) 6.25 mg PO TID [facility] Last Admin: 05/22/18 16:04 Dose: 6.25 mg Device (Nicotine Mouth Piece*) 1 each INH .USE WITH NICOTROL PRN PRN Reason: CRAVING Last Admin: 05/21/18 11:32 Dose: 1 each Dextrose (D50w Syringe 50 Ml*) 12.5 gm IV PUSH .FOR FS < 60 - SS PRN PRN Reason: FS < 60 Furosemide (Lasix Tab*) 20 mg PO DAILY [facility] Last Admin: 05/22/18 08:37 Dose: Not Given Hydralazine HCl (Apresoline Iv*) 10 mg IV SLOW PU Q6H PRN PRN Reason: SBP>170 Levofloxacin/Dextrose (Levaquin 500 Mg Ivpremix(*)) 500 mg in 100 mls @ 100 mls /hr IVPB Q24H [facility] Last Admin: 05/21/18 19:39 Dose: 100 mls/hr Insulin Glargine (Lantus(*)) 15 units SUBCUT Q24H [facility] Last Admin: 05/22/18 08:35 Dose: 15 units Insulin Human Lispro (Humalog*) 7 units SUBCUT AC [facility] Last Admin: 05/22/18 17:02 Dose: 7 units Insulin Human Lispro (Humalog*) 0 units SUBCUT ACHS [facility]; Protocol Last Admin: 05/22/18 17:03 Dose: 4 unit Methylprednisolone Sodium Succinate (Solu-Medrol 40 Mg) 40 mg IV Q12H [facility] Last Admin: 05/22/18 08:18 Dose: 40 mg Metoprolol Tartrate (Lopressor Tab*) 25 mg PO QID [facility] Last Admin: 05/22/18 16:05 Dose: 25 mg Nicotine (Nicotine Inhaler*) 10 mg INH Q2H PRN PRN Reason: CRAVING Last Admin: 05/21/18 16:23 Dose: 10 mg Nicotine (Nicotine Patch 21 Mg/24 Hr*) 1 patch TRANSDERM DAILY [facility] Last Admin: 05/22/18 08:18 Dose: 1 patch Pharmacy Profile Note (Nicotine Patch Removal Note*) 1 note PATCH OFF 2100 [facility] Vital Signs - 8 hr 05/22/18 15:59 Temperature 98.1 F Pulse Rate 96 Respiratory 16 Rate Blood Pressure 170/91 (mmHg) O2 Sat by Pulse 97 Oximetry Oxygen Devices in Use Now: None Appearance: alert, NAD Eyes: No Scleral Icterus, PERRLA Ears/Nose/Mouth/Throat: NL Teeth, Lips, Gums, Mucous Membranes Moist Neck: NL Appearance and Movements; NL JVP, Trachea Midline Respiratory: Symmetrical Chest Expansion and Respiratory Effort, - - diminished bases Cardiovascular: NL Sounds; No Murmurs; No JVD, No Edema, - - irregular Abdominal: NL Sounds; No Tenderness; No Distention Extremities: No Edema, No Clubbing, Cyanosis Skin: No Rash or Ulcers Neurological: Alert and Oriented x 3 Nutrition: Taking PO's Result Diagrams: 05/22/18 05:38 05/22/18 05:38 Diagnostic Imaging: Transesophageal ECHO Conclusions Atrial flutter/fib during the exam. Global left ventricular wall motion and contractility are within normal limits. The estimated ejection fraction is 55-60%. The left atrium is moderately dilated. There is no thrombus visualized in the left atrial appendage. The right atrium is moderately dilated. A patent foramen ovale is not demonstrated with color Doppler and agitated contrast. There is mild aortic regurgitation. There is mild aortic stenosis. There is mild to moderate mitral regurgitation. Dual jets. There is mild to moderate plaque in the ascending arch measuring up to 0.4cm and more moderate plaque in the descending aorta measuring up to 0.6 cm. Similar to the prior transthoracic study of 05.21.18 CTA CHEST Patient Name: SHANTEL THOMPSON Medical Record#: [id number] Ordering Physician: Tyler aRy MD Acct.#: [id number] : 1960 Age: 58 Sex: M Location: EMERGENCY DEPARTMENT Exam Date: 05/20/182224 ADM Status: REG ER Order Information: CTA CHEST Accession Number: [id number] CPT: 77122 EXAM: CT Angiography Chest With Intravenous Contrast EXAM DATE/TIME: 05/20/2018 11:02 PM CLINICAL HISTORY: 58 years old, male; Pain and signs and symptoms; Shortness of breath; Chest pain; Additional info: Sob/hypoxia/pe TECHNIQUE: Axial computed tomographic angiography images of the chest with intravenous contrast using CT angiography protocol. All CT scans at this facility use at least one of these dose optimization techniques: automated exposure control; mA and/or kV adjustment per patient size (includes targeted exams where dose is matched to clinical indication); or iterative reconstruction. Coronal and sagittal reformatted images were created and reviewed. MIP reconstructed images were created and reviewed. CONTRAST: 82 ml of visi administered intravenously. COMPARISON: No relevant prior studies available. FINDINGS: Pulmonary arteries: Pulmonary arteries are well opacified to the subsegmental branches. Normal caliber main pulmonary artery. No filling defects throughout the pulmonary artery tree. Aorta: The aorta demonstrates mild atherosclerotic calcification. Lungs: Patchy subsegmental atelectasis basilar segments bilateral lower lobes. Ground glass pulmonary nodules anterior segment right upper lobe measuring 0.4 and 0.6 cm and upper lingula measuring 0.3 cm (series 3, image 26). Mild diffuse peribronchial thickening. No bronchiectasis. Pleural space: Small pleural effusions. No pneumothorax. Heart: There is mild atherosclerotic calcification of the coronary arteries. Thyroid: No thyroid nodules. Bones/joints: The thoracic spine demonstrates mild degenerative changes at multiple levels. No fractures. No suspicious bone lesions. Soft tissues: Normal. Lymph nodes: Normal. No enlarged lymph nodes. IMPRESSION: 1. No pulmonary emboli. 2. Findings of bronchitis with bibasilar atelectasis and small pleural effusions. Assess/Plan/Problems-Billing Assessment: This is a 58 yo male with a PMH of halfway tobacco abuse, CAD with stent placement ([facility]), non-insulin T2DM, HTN, hx of CVA in December ([facility]), hx of non-compliance who presented from [facility] on 05/20 with dyspnea cough and thick sputum, with a report of vomiting x3 on the way to the ER who was sent to [facility] for abnormal troponin. - Patient Problems (1) Elevated troponin Code(s): R74.8 - ABNORMAL LEVELS OF OTHER SERUM ENZYMES SNOMED Code(s): 993947811 Comment: - Trop peaked at 0.5 - Concerning EKG changes with inverted Twaves and ST changes - - cardiology consult appreciated - Continue ASA, statin, BB - Complete nuclear imaging for stress tomorrow, NPO after midnight - obtain records from [place] and [facility] (2) SOB (shortness of breath) Code(s): R06.02 - SHORTNESS OF BREATH SNOMED Code(s): 073484242 Comment: - Improving, off O2 - CTA showing bronchitis, no PE, most likely COPD exacerbation - Continue levaquin, Solumedrol, Nebs prn - ECHO and CTA as above - Pending nuclear portion of stress tomorrow (3) Atrial flutter Code(s): I48.92 - UNSPECIFIED ATRIAL FLUTTER SNOMED Code(s): 5343589 Comment: - s/p MOO today - Remains irregular but appears to be in sinus on tele - appreciate input from cardiology (4) Abnormal renal function Comment: - back to 1.12 today, unclear of patient's baseline - continue to monitor (5) Diabetes Current Visit: Yes Status: Acute Code(s): E11.9 - TYPE 2 DIABETES MELLITUS WITHOUT COMPLICATIONS SNOMED Code(s): 80911916 Comment: - uncontrolled on admission but did have solumedrol in [facility] - HbA1C pending. - Start Lantus 15 units Q24 (most likely this will need to be increased) - Start Lispro AC 7 units with sliding scale. - FSBG ACHS - Counseled on diet - Hold home metformin (6) History of CVA (cerebrovascular accident) Code(s): Z86.73 - PRSNL HX OF TIA (TIA), AND CEREB INFRC W/O RESID DEFICITS SNOMED Code(s): 184929064 Comment: - pt and family report "possible CVA" in December - pt left [facility] A[facility] - not on ASA /Statin at home - Inititated ASA and high dose statin, will also need at discharge (7) Tobacco abuse Current Visit: Yes Status: Acute Code(s): Z72.0 - TOBACCO USE SNOMED Code( s): 100247931 Comment: - nicotine supplementation - smoking cessation (8) DVT prophylaxis Current Visit: Yes Status: Acute Code(s): FRS0451 - SNOMED Code(s): 308354581 Comment: - Lovenox per cardiology - Will need to consider AC at discharge for aflutter Status and Disposition: Inpatient, pending further cardiac diagnostics.
[2018-05-22] MEDS: Nicotine Inhaler* 10 MG AMP INH PRN (18:07)
[2018-05-22] MEDS: Levofloxacin 500 MG IVPREMIX(* 500 MG/100 ML BAG IVPB SCH (19:56)
[2018-05-22] MEDS ORDERED: Nicotine Patch Removal NOTE PATCH OFF SCH (21:00)
[2018-05-22] MEDS: Atorvastatin* 40 MG TAB PO SCH (21:36)
--- NOTE | 2018-05-22 23:38 | CARD ---
CARDIOLOGY PROCEDURE NOTE: DATE OF PROCEDURE: 05/22/18 - ROOM #434 PATIENT OF: Dr. Garrison.* PROCEDURE: Cardioversion. INDICATIONS: This is a pleasant 58-year-old gentleman with a history of COPD, admitted with shortness of breath and found to have COPD exacerbation, possible pulmonary infection and atrial flutter/atrial fibrillation with a rapid ventricular response. He was started on anticoagulation. He was brought in a fasting state for MOO-guided cardioversion. Informed consent was obtained. The patient was premedicated with viscous lidocaine, 10 mg of Versed and 50 mcg of fentanyl. A MOO was performed, which revealed no evidence of intracardiac thrombus. A single synchronized biphasic shock of 120 joules was applied with successful conversion from atypical atrial flutter to what appeared to be sinus rhythm. There were no complications. He was given 5 mg of metoprolol IV postcardioversion. IMPRESSION: Successful MOO-guided cardioversion from atrial flutter to sinus rhythm. [id number]/[facility] #: [id number] HILARY
[2018-05-23] MEDS: Insulin GLARGINE(*) 1 UNITS UNIT SUBCUT SCH (08:40)
[2018-05-23] MEDS: Insulin LISPRO* 1 UNITS UNIT SUBCUT SCH ×5 (08:40→12:02)
[2018-05-23] MEDS: methylPREDNISolone SOD 40 MG* 1 ML VIAL IV SCH (08:40)
[2018-05-23] MEDS: Captopril TAB* 12.5 MG PO SCH ×2 (08:48→09:44)
[2018-05-23] MEDS: Aspirin EC TAB* 81 MG TAB.EC PO SCH ×2 (08:48→09:45)
[2018-05-23] MEDS: Metoprolol Tartrate TAB* 25 MG PO SCH (08:48)
[2018-05-23] MEDS: Furosemide TAB* 20 MG PO SCH ×2 (08:48→09:44)
[2018-05-23 09:40] LABS: Hematocrit 41 % (42-52); Hemoglobin 13.3 g/dl (14.0-18.0); Mean Corpuscular HGB Conc 33 g/dl (31-36); Mean Corpuscular Hemoglobin 29 pg (27-31); Mean Corpuscular Volume 89 fL (80-94); Mean Platelet Volume 7.6 um3 (7.4-10.4); Platelet Count 332 10^3/ul (150-450); Red Blood Count 4.58 10^6/ul (4.00-5.40); Red Cell Distribution Width 14 % (10.5-15); White Blood Count 17.1 10^3/ul (3.5-10.8)
[2018-05-23] MEDS: Nicotine Inhaler* 10 MG AMP INH PRN ×2 (09:43→14:32)
[2018-05-23] MEDS: Nicotine PATCH 21 MG/24 HR* PATCH TRANSDERM SCH (09:44)
[2018-05-23 09:59] LABS: EGFR Non-African American 60.8 (>60)
--- NOTE | 2018-05-23 10:43 | RAD ---
Edited for charges. INDICATION: Shortness of breath, diabetic, hypertensive, tobacco use. Previous angioplasty. Elevated troponin. Abnormal EKG COMPARISON: No relevant prior exams available on the [facility] PACS for comparison. TECHNIQUE: 25.600 mCi of Tc-99m Myoview were administered IV. SPECT images of the heart were obtained. Later on the same day. Under the direction of Dr. Garrison, the patient was given an IV injection of a pharmacologic stress agent. Subsequently, the patient was given an IV injection of 25.200 mCi Tc-99m Myoview. SPECT images of the heart were obtained and a gated wall motion study was performed. FINDINGS: Small dependent pleural effusions without gross change. Gated wall motion images were obtained at stress and demonstrate diffuse hypokinesia. The calculated left ventricular ejection fraction is 49% % at stress and rest. Estimated LEFT ventricular end diastolic volume is 150 mL at stress and 137 mL at rest. TID 1.0. Diaphragmatic attenuation noted. Attenuation corrected and nonattenuation corrected images reviewed. Fixed decreased perfusion at the apex and at the junction of the anterior wall and septum from the apex through the mid segment most consistent with infarct. No compelling stress-induced reversible perfusion defect to indicate stress- induced ischemia. IMPRESSION: #. Small volume of infarct involving the apex and junction of the anterior wall and septum from the apical through the mid segments. #. No compelling stress-induced reversible perfusion defect to indicate stress- induced ischemia. #. Global hypokinesia and dilated LEFT ventricle. Mildly abnormal LEFT ventricular ejection fraction at stress and rest. ASSESSMENT: Intermediate risk based on nuclear portion. Based on imaging criteria from ACC/AHA 2002 Guideline Update for the Management of Patients With Chronic Stable Angina Table 23. Noninvasive Risk Stratification. MTDD
[2018-05-23] MEDS ORDERED: Lisinopril TAB* 10 MG PO SCH (11:00)
[2018-05-23] MEDS ORDERED: Metoprolol Tartrate TAB* 25 MG PO SCH (13:00)
[2018-05-23] MEDS ORDERED: Rivaroxaban TAB(*) 20 MG TAB PO SCH (15:00)
[2018-05-23 15:55] VITALS: BP 165/87
--- NOTE | 2018-05-23 16:22 | PN ---
Work Excuse - Work Note Work Note: May 23, 2018 This is to confirm that Mr. Jacobson has been admitted on 05/21/18 and has been evaluated in our facility. He has a few follow up outpatient visits with his PCP and other physicians and would need to be excused for him to recuperate and complete his follow up appointments. He will be discharged today and should be able to resume his duties on 05/30/18. He is advised not to lift more than 30 lbs or extraneous work that would further stress his heart until he is cleared by his PCP of re-evaluation. Please call my office for any questions or concerns. Due to HIPPA, we cannot provide any specifics regarding the details of her hospitalization unless a written and signed consent from Ms. Mccarty is made available for our records. Sincerely, Abhishek Santamaria MD [id number]
--- NOTE | 2018-05-24 06:14 | DS ---
CC: Dr. Zhang; Dr. Ray; Dr. Garrison; Monica Carlson NP; Dr. Emiliana Lopez; Dr. Savana Pastor DISCHARGE SUMMARY: DATE OF ADMISSION: DATE OF DISCHARGE: 05/23/18 DISCHARGE DIAGNOSES: Are as follows: 1. Elevated troponin, likely secondary to non-ST segment elevation myocardial infarction. A stress test revealed some small volume infarct involving the apex and junction of the anterior wall and septum from the apical through the mid segments with evidence of global hypokinesia and dilated left ventricle. 2. Chronic obstructive pulmonary disease exacerbation. 3. Atrial flutter, status post transesophageal echocardiography cardioversion. 4. Diabetes mellitus, uncontrolled. DISCHARGE MEDICATIONS: Limited by patient's resources and patient is currently applying for Medicaid. His discharge medications are: 1. Aspirin 81 mg p.o. daily. 2. Atorvastatin 80 mg p.o. daily. 3. Lasix 20 mg p.o. daily. 4. Lisinopril 10 mg p.o. daily. 5. Metoprolol tartrate 37.5 mg p.o. four times a day. 6. Nicotine patch 21 mg/24-hour patch. 7. Xarelto 20 mg p.o. daily. 8. Amlodipine 10 mg p.o. daily. 9. Metformin 1000 mg p.o. b.i.d. 10. Prednisone rapid taper. HISTORY OF PRESENT ILLNESS/HOSPITAL COURSE: The patient is a 58-year-old gentleman with history of diabetes, hypertension, and hyperlipidemia as well as previous history of CAD with PCI/stent, was transferred from [place] with chief complaint of dyspnea and mildly elevated troponin. His troponins were trended on transfer and had a peak of 0.52 and he had a stress test done, which showed some small volume infract involving apex and junction of anterior wall and septum from the apical through mid segments, which was reviewed by Dr. Garrison. Prior to his discharge, I had mentioned that this is a low risk. He also had atrial flutter during his hospital stay and underwent MOO cardioversion and currently on Xarelto. Although his blood sugars were uncontrolled and given the patient has never been previously on insulin and with an HbA1c of 9.1 and given he mentions he does not currently have any insurance and have difficulty buying his medications, he was discharged instead on maximal dose of metformin and glipizide was added, which could certainly be titrated by PCP as an outpatient as we rapidly taper off steroids. The patient was advised to follow up and call his PCP within 3 days post discharge to set up a post-discharge appointment. He was advised that if his symptoms resume or develops new ones or feel unwell for any reason, to call his PCP first and if his PCP cannot entertain him due to scheduling issues alone, to call [facility] clinic if his issue is considered nonemergent. He was advised to follow up with Dr. Chappell at [place]. He was advised to contact his office to confirm his appointment. He was advised to call my office regarding any questions, concerns, or further clarifications regarding his discharge plans and/or prescriptions and to take his medications as prescribed. REVIEW OF SYSTEMS: The patient currently denies any headache, dizziness, fever , chills, nausea, vomiting, chest pain, shortness of breath, increased cough and /or sputum production, abdominal pain, diarrhea, constipation, pain and/or increased frequency on urination, myalgias, arthralgias, throat pain, or new skin lesions. The rest of the 14-point review of systems are otherwise unremarkable. PHYSICAL EXAMINATION: Reveals the most recent vital signs of records with blood pressure of 184/86 from 169/91 and 166/91, 89 beats per minute, 16 per minute respiratory rate, saturating at 97% on room air, with temperature of 98 degrees Fahrenheit. General Appearance: The patient is awake, alert, and oriented x3, not in acute distress. HEENT: Normocephalic, atraumatic. PERRLA. Extraocular muscles intact. Negative for icterus. Moist oral mucosa. Negative throat erythema. Neck is soft, supple, with no cervical lymphadenopathy, no JVD. Heart: S1, S2 within normal limits, regular rate and rhythm. No murmurs, rubs, or gallops. Chest: Clear to auscultation bilaterally. Good air entry. No wheezes, rales, or rhonchi. Abdomen is soft, nondistended, nontender. Normoactive bowel sounds x4 quadrants. Extremities: No cyanosis, clubbing, or edema. Psychiatric: No active psychosis, depression, or suicidal or homicidal ideations. Skin is warm to touch. TIME SPENT: The total time spent evaluating the patient, reviewing pertinent data, and appropriate documentation is 50 minutes. [id number]/[facility] #: [id number] MTDD
== END 2018-05-23 16:30 | disposition hospice, home (50) | DRG 281 ==
LOC: ED 21:53 → MEDTELE 05-21 00:48
PROVIDERS: ADMIT Hospitalist; ATTEND Student in an Organized Health Care Education/Training Program
PROC: B24BZZ4 Ultrasonography of Heart with Aorta, Transesophageal (ICD-10-PCS; 2018-05-22)
PROC: 5A2204Z Restoration of Cardiac Rhythm, Single (ICD-10-PCS; principal; 2018-05-22 07:00)
DX: I21.4 Non-ST elevation (NSTEMI) myocardial infarction (principal); I48.92 Unspecified atrial flutter; J44.1 Chronic obstructive pulmonary disease with (acute) exacerbation; F17.210 Nicotine dependence, cigarettes, uncomplicated; I11.0 Hypertensive heart disease with heart failure; I50.9 Heart failure, unspecified; E78.5 Hyperlipidemia, unspecified; R94.4 Abnormal results of kidney function studies; E11.65 Type 2 diabetes mellitus with hyperglycemia; I25.10 Atherosclerotic heart disease of native coronary artery without angina pectoris; Z95.5 Presence of coronary angioplasty implant and graft; Z82.49 Family history of ischemic heart disease and other diseases of the circulatory system; Z91.030 Bee allergy status; Z91.018 Allergy to other foods; Z86.73 Personal history of transient ischemic attack (TIA), and cerebral infarction without residual deficits; Z80.1 Family history of malignant neoplasm of trachea, bronchus and lung; Z91.14 Patient's other noncompliance with medication regimen; Z79.82 Long term (current) use of aspirin; Z79.01 Long term (current) use of anticoagulants; Z79.84 Long term (current) use of oral hypoglycemic drugs; I25.2 Old myocardial infarction
CPT/HCPCS: 36415; 71275; 78452; 80048; 80053; 80061; 82803; 82947; 83036; 83605; 83735; 84100; 84443; 84484; 85025; 85027; 92960; 93005; 93017; 93306; 93312; 93325; 99156; 99157; 99285; A9270-GY; A9502; J0280; J0456; J0696; J1650; J1940; J1956; J2250; J2310; J2785; J2920; J3010; J3490; Q9967